=== PATIENT | female | born 1960 | race Caucasian/White ===

== ENCOUNTER → 2017-05-21 | Outpatient (CLI) | payer MEDICARE ==
[~2017-05-21] MED LIST: ACYC400T PO; ALBUAER3 INH; ATOR20TA15 PO; CALC12502 PO; CYCL10TA PO; EFFE150C PO; ESTR1TAB PO; HYDR-3583 PO; IMIT50TA PO; LACTCAP8 PO; LEVO.15 PO; LORA0.5T PO; SUGAMMADEX SODIUM 200 MG/2 ML VIAL IV PUSH ONE; THROMBIN (TOPICAL) 5,000 UNIT VIAL ONE; TRAM50TA PO; TRAZ100T10 PO; TRIA.1%T TOPICAL; UMEC1AER INH; VENL100T PO; VENL50TA PO; VITATAB56 PO
== END ==
LOC: CPRE 12:22
PROVIDERS: ATTEND Neurological Surgery
DX: Z01.812 Encounter for preprocedural laboratory examination (principal); M48.02 Spinal stenosis, cervical region; M50.30 Other cervical disc degeneration, unspecified cervical region; M47.12 Other spondylosis with myelopathy, cervical region
CPT/HCPCS: 87640; 87641

== ENCOUNTER 2017-05-22 05:55 | Observation (INO) | payer MEDICARE ==
--- NOTE | 2017-05-21 19:01 | MH ---
cc: ANTOINE ARSHAD MD, ROHIT K. M.D. DATE OF ADMISSION 05/22/2017 ADMISSION DIAGNOSIS Cervical spinal stenosis HISTORY OF PRESENT ILLNESS This is a 56-year-old female who presented to us for evaluation of neck pain that she has had for last 7 years progressively getting worse and has been really bad over the last 3 years. She states that she saw her physician who ordered an MRI of the cervical spine. He recommended pain management but she is not interested in pursuing that route and she was referred to neurosurgery. She denies any radiculopathy in the upper extremities. She has pain that radiates across his shoulder blades. She has spasms in her neck. She also gets tingling intermittently in the left upper extremity more than the right upper extremity but is unclear about the distribution. She denies any urinary frequency. She states that she has weakness in her lower extremities and feels that she could fall for the last 3 months. She states that she also gets numbness in her lower extremities when this occurs. She has had low back pain and has difficulty walking distances where her hips hurt and this has been for the last six years. She has pain that radiates into the lower extremities and to either one intermittently. PAST MEDICAL HISTORY Significant for: 1. COPD. 2. Hypothyroidism. 3. Anxiety. 4. Migraines. 5. Hyperlipidemia. 6. History of hysterectomy in 1994. 7. Laparoscopy in 1992 and 1993. MEDICATIONS 1. Effexor 50 mg p.o. q.12h. 2. Triamcinolone topical 0.1% cream apply topically to the area. 3. Trazodone 100 mg q.h.s. 4. Tramadol 50 mg q.4h p.r.n. pain. 5. Levothyroxine 150 mcg p.o. daily. 6. Albuterol 2 puffs inhaled q.6h p.r.n. shortness of breath. 7. Lorazepam 0.5 mg p.o. daily p.r.n. anxiety. 8. Imitrex 50 mg p.o. p.r.n. migraine headaches. 9. Estradiol 1 mg p.o. daily. 10. Flexeril 10 mg p.o. t.i.d. p.r.n. muscle spasms. 11. Atorvastatin 20 mg p.o. q.h.s. 12. Acyclovir 400 mg p.o. t.i.d. ALLERGIES AMOXICILLIN, BUPROPION, CITALOPRAM, DEXAMETHASONE, METRONIDAZOLE, PAROXETINE, SULFA. FAMILY HISTORY Father is at 70 years old, had a stroke. Mother is alive at 80 years old, history of atrial fibrillation and high blood pressure. Brother is alive 62 years old, has diabetes. Sister is alive 60 years old, had cancer. SOCIAL HISTORY She is disabled. She has two children. She smokes but quit prior to surgery. She has smoked for 40 years. She drinks on a rare occasion two to three drinks per year. REVIEW OF SYSTEMS CONSTITUTIONAL: She denies any fever or chills. EARS, NOSE, AND THROAT: No pharyngitis or exudate or bloody drainage from her nose. CARDIOVASCULAR: No chest pain or palpitations. RESPIRATORY: Positive for shortness of breath. No cough. GENITOURINARY: No dysuria or hematuria. MUSCULOSKELETAL: Positive for neck and low back pain. SKIN: No rashes or pururitis. NEUROLOGICAL: No difficulty with speech. Positive for difficulty with memory. GASTROINTESTINAL: No nausea or vomiting or abdominal pain. PSYCHIATRIC: Positive for anxiety and depression symptoms. ENDOCRINE: Positive for polydipsia. No polyuria. HEMATOLOGIC: No bleeding tendencies. Positive for bruising tendencies. PHYSICAL EXAMINATION HEAD: Normocephalic, atraumatic. NECK: Supple. No carotid bruits heard on auscultation. LUNGS: Clear to auscultation bilaterally. HEART: Regular rate and rhythm. Normal S1-S2. ABDOMEN: Soft and nontender. Positive bowel sounds. SKIN: Reveals no cyanosis or erythema. MUSCULOSKELETAL: She has 5/5 strength in the lower extremities and the upper extremities. NEUROLOGIC: She is awake, alert and oriented. Cranial nerves II through XII appear grossly intact. Speech is fluent. Comprehension is good. Reflexes are brisk in the upper and lower extremities. She has a positive Field bilaterally. There is no clonus bilaterally. IMAGING MRI of the cervical spine from 10/11/2016 was reviewed which reveals severe C4-C5 spinal stenosis with spinal cord compression from a disk/osteophyte complex along with degenerative disk disease and listhesis and the spinal canal is reduced to 5 mm. She has disk protrusions which are mild at C5-C6 and C6-C7. MRI of the thoracic and lumbar spine revealed multilevel disk protrusions and degenerative disk disease but no significant spinal stenosis. IMPRESSION A 56-year-old female with a chronic history of neck pain with radiation to bilateral shoulders and C5 radiculopathy along with myelopathy. She has undergone physical therapy without relief and relates unsteadiness in her gait and weakness in her legs. Her symptoms have been ongoing for the past 2 years although worse over the last 3 months. She also relates chronic low back pain. She has been on disability for the past 3 years. She does have significant C4-C5 disk osteophyte complexes, spinal stenosis and cord compression along with multilevel degenerative disk disease and disk protrusions at other levels in the cervical, thoracic and lumbar spine. PLAN We have discussed treatment options with the patient which include continued conservative measures versus surgical intervention. We have discussed a C4-C5 anterior cervical fusion with diskectomy. The procedure as well as the risks, benefit, alternative and recovery time were explained in great detail with the patient. We have discussed the procedure using spine models in the office and all her questions were answered to her satisfaction. We have discussed the risks involved with surgery include but not limited to bleeding, infection, muscle weakness, voice hoarseness, difficulty swallowing, heart attack, stroke, blood clots, non fusion, scar tissue formation among others. We have discussed that there is a possibility that she may not improve or even be worse after surgery. We have informed her to quit smoking prior to surgery and also for least 4 months after surgery or there is a risk of non fusion as well as cardiopulmonary complications. The patient states that she has quit prior to surgical intervention and she will remain off cigarettes after surgery also. She is requesting that we proceed with surgery as planned and she was therefore scheduled accordingly. DICTATED BY: Oleg Gallo PA-C MD JOHN Shah/VANIA /5:42 PM /6:18 PM
[~2017-05-22] VITALS: Ht 157.5 cm; Wt 68.3 kg
[~2017-05-22 05:55] MED LIST changes: -HYDR-3583 PO; -SUGAMMADEX SODIUM 200 MG/2 ML VIAL IV PUSH ONE; -THROMBIN (TOPICAL) 5,000 UNIT VIAL ONE; -VENL100T PO; -VENL50TA PO
[2017-05-22] MEDS ORDERED: LACTATED RINGER'S 1000 ML IV PRN (06:30)
[2017-05-22] MEDS ORDERED: METOPROLOL TARTRATE 25 MG TAB PO PRN (06:30)
[2017-05-22] MEDS ORDERED: SODIUM CHLORID 0.9% 500 ML IV PRN (06:30)
[2017-05-22] MEDS ORDERED: POVIDONE IODINE 5% (ANTISEPSIS KIT) 4 APPLICATIONS EACH NARE PRN (06:30)
[2017-05-22] MEDS ORDERED: VANCOMYCIN 1 GM/200 ML PREMIX ON-CALL IV SCH (06:30)
[2017-05-22] MEDS ORDERED: CHLORHEXIDINE GLUCONATE 2 % 1 PACK (2 CLOTHS) TOPICAL PRN (06:30)
[2017-05-22] MEDS ORDERED: SODIUM CHLOR 0.9% 1000 ML INJ 1,000 ML IV SCH (06:45)
[2017-05-22] MEDS ORDERED: ACETAMINOPHEN 1000 MG/100 ML 100 ML IV ONE (06:57)
[2017-05-22] MEDS ORDERED: PROPOFOL 500 MG/50 ML INJ 100 ML ONE (06:57)
[2017-05-22] MEDS ORDERED: VANCOMYCIN HCL 1000 MG VIAL ONE ×2 (07:07→08:19)
[2017-05-22] MEDS ORDERED: GELFOAM SIZE 100 ONE (07:07)
[2017-05-22] MEDS ORDERED: THROMBIN (TOPICAL) 5,000 UNIT VIAL ONE (07:07)
[2017-05-22] MEDS ORDERED: BUPIVACAINE/EPINEPHRINE 0.5% PF 30 ML VIAL ONE (07:07)
[2017-05-22] MEDS ORDERED: SODIUM CHLOR 0.9% 250 ML INJ 250 ML ONE (08:20)
[2017-05-22] MEDS ORDERED: NS + KCL 20 MEQ INJ 1,000 ML IV SCH (11:33)
--- NOTE | 2017-05-22 11:37 | PD.OP ---
cc: Kodak Garcia MD Operative Report Date of Surgery: May 22, 2017 Preoperative Diagnosis: Neck pain with radiculopathy; cervical C4-5 disc osteophyte complex with associated degenerative disc disease and spinal/foraminal stenosis Postoperative Diagnosis: Same Procedure: Anterior cervical C4-5 microdiscectomy with interbody fusion; anterior C4-5 cervical plate placement; C4-5 interbody cage placement; microsurgical technique Anesthesia: Gen. endotracheal by Bettina gipson Surgeon: Felix Hirsch M.D. Movie Star(s): Jyoti Daly Operation and Findings: Following administration of general endotracheal anesthesia, the patient received a gram of vancomycin intravenously. Sequential compression devices were placed in supine position on a Glen table and all pressure points adequately padded. The head secured in a donut and anterior cervical region then shaved and prepped with Chloraprep and sterilely draped with Ioban along with the usual sterile draping. A transverse skin incision on the left side of the neck was then made after infiltrating the skin with 0.5% Marcaine with epinephrine solution extending down through the platysma. At the anterior border of the sternocleidomastoid further dissection was undertaken developing a plane between the carotid sheath laterally and the trachea esophagus medially. The prevertebral fascia was exposed and dissected out. The medial attachments of the longus colli muscles were detached and a self-retaining retractor used for exposure. The C4-5 disc space was localized with a marking the disc space and using lateral fluoroscopy. Mccammon distraction screws 14 mm length were placed one in the C4 and one in the C5 body interbody distraction and exposure. There was significant disc degeneration with disc height collapse and anterior osteophytes noted at the C4-5 level and the osteophytes were resected with a Leksell and annulus incised with a 15 blade and further dissection undertaken using microtechnique with microscope magnification. Diskectomy was undertaken with pituitaries and the endplates were also decorticated with curettes and drill bit. And more posteriorly there was disk osteophyte complex compressing the thecal sac along with a significant uncovertebral joint hypertrophy with foraminal stenosis which was decompressed along with removal of the posterior longitudinal ligaments at both levels. The foramen was decompressed bilaterally using a Kerrison's and palpation with a nerve hook, the exiting nerve roots were felt to be free. The area was then copiously irrigated. I then placed a Peek cage packed with local autograft bone at the C54-5 interspace under fluoroscopy guidance. Mccammon distraction pins were removed and the holes plugged with Gelfoam for hemostasis. In order to facilitate the fusion and provide stabilization, a Precision spine solo cervical plate was then placed with 14 mm variable angle screw in the C4 body and 14 mm fixed angle screw in the C5 body. The plate screw locking mechanism was then engaged. AP and lateral fluoroscopy confirmed good placement of the construct and the retractor was then removed. Muscular bleeding points were cauterized with bipolar cautery and Gelfoam was then also used for hemostasis which was removed. The platysma was then approximated using 3-0 Vicryl interrupted stitches and 3-0 Vicryl subcuticular stitch also placed in an interrupted fashion, and final skin closure was with Mastisol and Steri-Strips. Sterile dressing was then applied. The patient was then extubated and taken to the recovery room. There are no intraoperative complications and all sponge and needle counts were correct at the end of procedure. Estimated blood loss was about 25 cc. The patient did undergo intraoperative neurologic monitoring which remained stable throughout the surgery. Felix Hirsch MD May 22, 2017 11:37
[2017-05-22] MEDS ORDERED: DO NOT ADM ANY ANTICOAGULANT DRUGS PRN (11:40)
[2017-05-22] MEDS ORDERED: ACETAMINOPHEN/HYDROcodone 325 MG/10 MG TAB PO PRN (11:45)
[2017-05-22] MEDS ORDERED: ALBUTEROL SULFATE 90 MCG/ACT HFA 8 GM INHALER INH PRN (11:45)
[2017-05-22] MEDS ORDERED: MAGNESIUM HYDROXIDE SUSP 30 ML CUP PO PRN (11:45)
[2017-05-22] MEDS ORDERED: TRIAMCINOLONE ACETONIDE 0.1% CREAM 15 GM TOPICAL SCH (11:45)
[2017-05-22] MEDS ORDERED: SODIUM CHLORIDE 0.9% FLUSH 10 ML FLUSH IV FLUSH PRN (11:45)
[2017-05-22] MEDS ORDERED: MENTHOL LOZENGE BUCCAL PRN (11:45)
[2017-05-22] MEDS ORDERED: LACTULOSE SYRUP 20 GM/30 ML CUP PO PRN (11:45)
[2017-05-22] MEDS ORDERED: ALUMINUM/MAGNESIUM/SIMETH 30 ML CUP PO PRN (11:45)
[2017-05-22] MEDS ORDERED: SENNOSIDES 8.6 MG TAB PO PRN (11:45)
[2017-05-22] MEDS ORDERED: MORPHINE SULFATE 4 MG/ML INJ IV PUSH PRN (11:45)
[2017-05-22] MEDS ORDERED: PROMETHAZINE INJ 25 MG/ML VIAL IM PRN (11:45)
[2017-05-22] MEDS ORDERED: RESP: ALBUTEROL 2.5 MG/3 ML NEB (PRN) NEB (11:45)
[2017-05-22] MEDS ORDERED: ONDANSETRON HCL 4 MG/2 ML VIAL IV PUSH PRN (11:45)
[2017-05-22] MEDS ORDERED: BISACODYL 10 MG SUPP RECTAL PRN (11:45)
[2017-05-22] MEDS ORDERED: cloNIDine HCL 0.1 MG TAB PO PRN (11:45)
[2017-05-22] MEDS ORDERED: ACETAMINOPHEN 325 MG TAB PO PRN (11:45)
[2017-05-22] MEDS ORDERED: SUMAtriptan SUCCINATE 50 MG TAB PO PRN (11:45)
[2017-05-22] MEDS ORDERED: LORazepam 0.5 MG TAB PO PRN (11:45)
[2017-05-22] MEDS ORDERED: MIDAZOLAM HCL 2 MG/2 ML VIAL ONE (11:47)
[2017-05-22] MEDS ORDERED: PHENYLEPH/NS 1000 MCG/10 ML SYR IV ONE (12:00)
[2017-05-22] MEDS ORDERED: DEXAMETHASONE SOD PHOS 4 MG/ML VIAL IV ONE (12:00)
[2017-05-22] MEDS ORDERED: LIDOCAINE HCL 1% PF 5 ML SYRINGE OTHER ONE (12:00)
[2017-05-22] MEDS ORDERED: ONDANSETRON HCL 4 MG/2 ML VIAL IV ONE (12:00)
[2017-05-22] MEDS ORDERED: LACTATED RINGER'S 1000 ML INJ 1,000 ML IV ONE (12:00)
[2017-05-22] MEDS ORDERED: PROPOFOL 200 MG/20 ML AMP IV ONE (12:00)
[2017-05-22] MEDS ORDERED: ROCURONIUM INJ 50 MG/5 ML SYRINGE IV PUSH ONE (12:00)
[2017-05-22] MEDS ORDERED: *morphine SULFATE 10 MG/ML PERIprocedure ONLY ONE (12:19)
[2017-05-22] MEDS ORDERED: CLINDAMYCIN INJ 600 MG in SODIUM CHLORIDE 0.9% INJ 100 ML IV SCH (14:00)
--- NOTE | 2017-05-22 15:00 | RADRPT ---
EXAM DATE/TIME: 05/22/2017 08:36 [facility] COMPARISON: No previous studies available for comparison. INDICATIONS : Fusion C4,C5 with screw and plate placement. MEDICAL HISTORY : None. SURGICAL HISTORY : None. ENCOUNTER: Initial ACUITY: 1 day PAIN SCORE: Non-responsive. LOCATION: Cervical spine. FINDINGS: 2 views of the cervical spine demonstrate post surgical changes following anterior cervical fusion at C4-5. There is a short anterior fusion plate and it T1 body cage. Alignment is well preserved. CONCLUSION: Satisfactory postoperative appearance of the cervical spine following fusion at C4-5. Yinka Benoit MD on May 22, 2017 at 14:58 Board Certified Radiologist. This report was verified electronically.
[2017-05-22] MEDS: CYCLOBENZAPRINE HCL 10 MG TAB PO SCH ×2 (15:12→20:15)
[2017-05-22 15:48] VITALS: BP 116/79; PULSE 103; RESP 18; TEMP 97.8; O2SAT 93
[2017-05-22] MEDS: ACETAMINOPHEN/HYDROcodone 325 MG/10 MG TAB PO PRN ×2 (17:54→22:35)
[2017-05-22 20:35] VITALS: BP 135/63; PULSE 103; RESP 17; TEMP 97.9; O2SAT 94
[2017-05-22] MEDS ORDERED: traZODone HCL 100 MG TAB PO SCH (21:00)
[2017-05-22] MEDS: SODIUM CHLORIDE 0.9% FLUSH 10 ML FLUSH IV FLUSH SCH (21:00)
[2017-05-22] MEDS ORDERED: ZOLPIDEM TARTRATE 5 MG TAB PO PRN (21:00)
[2017-05-22] MEDS ORDERED: ATORVASTATIN 20 MG TAB PO SCH (21:00)
[2017-05-22] MEDS: DOCUSATE SODIUM 50 MG/SENNA 8.6 MG TAB PO SCH (21:00)
[2017-05-23 00:35] VITALS: BP 135/64; PULSE 109; RESP 18; TEMP 97.9; O2SAT 94
[2017-05-23 01:12] VITALS: O2SAT 92
[2017-05-23 04:44] VITALS: BP 110/53; PULSE 97; RESP 16; TEMP 98; O2SAT 93
[2017-05-23] MEDS ORDERED: CLINDAMYCIN 600 MG/NS PREMIX 50 ML IV SCH (06:00)
[2017-05-23] MEDS ORDERED: LEVOTHYROXINE SODIUM 150 MCG TAB PO SCH (06:00)
[2017-05-23 08:31] VITALS: BP 116/59; PULSE 101; RESP 20; TEMP 98.2; O2SAT 93
[2017-05-23] MEDS ORDERED: UMECLIDINIUM 62.5 MCG/VILANTEROL 25 MCG INHALER INH SCH (09:00)
[2017-05-23] MEDS ORDERED: VENLAFAXINE HCL XR 75 MG CAP PO SCH (09:00)
[2017-05-23] MEDS: SODIUM CHLORIDE 0.9% FLUSH 10 ML FLUSH IV FLUSH SCH (09:00)
[2017-05-23] MEDS ORDERED: CALCIUM CARBONATE 1.25 GM (CA 500 MG) TAB PO SCH (09:00)
[2017-05-23] MEDS ORDERED: CHOLECALCIFEROL (VIT D3) 400 UNIT TAB PO SCH (09:00)
[2017-05-23] MEDS ORDERED: ESTRADIOL 1 MG TAB PO SCH (09:00)
[2017-05-23] MEDS: CYCLOBENZAPRINE HCL 10 MG TAB PO SCH (09:23)
[2017-05-23] MEDS: DOCUSATE SODIUM 50 MG/SENNA 8.6 MG TAB PO SCH (09:24)
[2017-05-23] MEDS: ACETAMINOPHEN/HYDROcodone 325 MG/10 MG TAB PO PRN (10:43)
[2017-05-23] MEDS ORDERED: HYDR-3583 PO (11:35)
--- NOTE | 2017-05-23 11:47 | HHI.NSPN ---
cc: Wilmer Sena MD S/P ACDF History Chief Complaint: s/p ACDF Interval History Postop from ACDF. Reports doing well Has been up and ambulating. Denies weakness or numbness or dysphagia Exam Results Vital Signs Date Time Temp Pulse Resp B/P (MAP) Pulse Ox O2 Delivery O2 Flow Rate FiO2 05/23/17 08:31 98.2 101 20 116/59 (78) 93 05/23/17 01:12 21 05/22/17 14:45 Room Air 05/22/17 12:15 2 Intake and Output 05/23/17 05/23/17 05/24/17 08:00 16:00 00:00 Intake Total 360 ml Balance 360 ml Physical Examination Moves all extremities well Sensation to touch is normal Wound is dry and cleam In [place] J collar Medical Decision Making Impression and Plan Doing well. Discharge as planned Total Minutes: 25 Wilmer Sena MD May 23, 2017 11:47
== END 2017-05-23 13:00 | disposition home or self-care (01) ==
LOC: HSDC 05:55 → EDUNIT# 10:00 → HSDI 11:37 → N05B 15:09
PROVIDERS: ADMIT Neurological Surgery; ATTEND Neurological Surgery
DX: M50.10 Cervical disc disorder with radiculopathy, unspecified cervical region (principal); M25.78 Osteophyte, vertebrae; M50.00 Cervical disc disorder with myelopathy, unspecified cervical region; M48.02 Spinal stenosis, cervical region; J44.9 Chronic obstructive pulmonary disease, unspecified; E03.9 Hypothyroidism, unspecified; F41.9 Anxiety disorder, unspecified; E78.5 Hyperlipidemia, unspecified; F32.9 Major depressive disorder, single episode, unspecified; G89.29 Other chronic pain; M54.5 Low back pain; Z87.891 Personal history of nicotine dependence; Z90.710 Acquired absence of both cervix and uterus; Z79.899 Other long term (current) drug therapy
CPT/HCPCS: 00600; 20936; 22551; 22845; 22853; 72040; 76000; 94150; 96361; 96365; 96376; C1713; G0378; J0131; J1100; J2250; J2270; J2370; J2405; J3010; J3370; J3480; J7030; J7050; J7120